=== PATIENT | male | born 1995 | race Caucasian/White ===

== ENCOUNTER 2016-07-08 16:06 | Emergency (ER) | payer BC ==
[2016-07-08 16:14] VITALS: BP 142/55
[2016-07-08] MEDS ORDERED: BSS OPTH.SOL* BTL ONE (17:10)
[2016-07-08] MEDS ORDERED: Tetracaine 0.5% OPTH.SOL 15ML* BTL ONE (17:10)
[2016-07-08] MEDS ORDERED: Fluorescein Sodium TOPICAL* 1 MG TEST ONE (17:10)
--- NOTE | 2016-07-08 17:43 | UC ---
Eye Complaint HPI - HPI Summary HPI Summary: 9AM WHILE WORKING ON HOUSE GOT SAWDUST IN RIGHT EYE. RINSED OUT EYE, BUT RIGHT EYE HAS BEEN IRRITATED AND RED EVER SINCE - History of Current Complaint Chief Complaint: UCEye Stated Complaint: FB EYE Time Seen by Provider: 07/08/16 16:22 Hx Obtained From: Patient, Family/Damage Cutter Onset/Duration: Sudden Onset, Lasting Hours, Still Present Timing: Hours Severity Initially: Mild Severity Currently: Mild Location of Injury: Conjunctiva Character: Dull Aggravating Factor(s): Nothing Alleviating Factor(s): Nothing Associated Signs And Symptoms: Positive: Drainage (Clear) - Risk Factors Penetrating Injury Risk Factor: Negative Globe Rupture Risk Factors: Negative Acute Glaucoma Risk Factors: Negative Optic Artery Occlusion Risk Factors: Negative - Allergies/Home Medications Allergies/Adverse Reactions: Allergies Allergy/AdvReac Type Severity Reaction Status Date / Time Bee Venom Allergy Severe Anaphylatic Unverified 07/08/16 16:14 Shock PMH/Surg Hx/FS Hx/Imm Hx Previously Healthy: Yes - Surgical History Surgical History: None - Family History Known Family History: Negative: Diabetes - Social History Occupation: Employed Part-time, Student Lives: With Family Alcohol Use: None Substance Use Type: None Smoking Status (MU): Never Smoked Tobacco Review of Systems Constitutional: Negative Skin: Negative Eyes: Drainage, Eye Redness ENT: Negative Respiratory: Negative Cardiovascular: Negative Gastrointestinal: Negative Genitourinary: Negative Motor: Negative Neurovascular: Negative Musculoskeletal: Negative Neurological: Negative Psychological: Negative All Other Systems Reviewed And Are Negative: Yes Physical Exam Triage Information Reviewed: Yes Appearance: Well-Appearing, No Pain Distress, Well-Nourished Vital Signs: Initial Vital Signs Temp 98.7 F 07/08/16 16:11 Pulse 57 07/08/16 16:11 Resp 16 07/08/16 16:11 BP 142/55 07/08/16 16:11 Pulse Ox 100 07/08/16 16:11 Eyes: Positive: Conjunctiva Inflamed, Discharge, Other: - FLUORESCEIN UPTAKE 3 OCLOCK TO 9 OCLOCK RIGHT CORNEA ENT Exam: Normal ENT: Positive: Normal ENT inspection, Hearing grossly normal, Pharynx normal, TMs normal, TM bulging Dental Exam: Normal Neck exam: Normal Neck: Positive: Supple, Nontender Respiratory Exam: Normal Respiratory: Positive: Chest non-tender, Lungs clear, Normal breath sounds, No respiratory distress, No accessory muscle use Cardiovascular Exam: Normal Cardiovascular: Positive: RRR, No Murmur, Pulses Normal Abdominal Exam: Normal Abdomen Description: Positive: Nontender, No Organomegaly Musculoskeletal Exam: Normal Neurological Exam: Normal Psychological Exam: Normal Skin Exam: Normal Eye Complaint Course/Dx - Differential Dx/Diagnosis Differential Diagnosis/HQI/PQRI: Conjunctivitis, Corneal Abrasion Provider Diagnoses: RIGHT CORNEAL ABRASION Discharge - Discharge Plan Condition: Stable Disposition: HOME Prescriptions: Neomycin/Polymy/Dex OPTH.SUSP* [Maxitrol Opth Susp 0.1%*] 1 drop RIGHT EYE TID # 1 bottle Patient Education Materials: Corneal Abrasion (ED) Referrals: [facility] [place] [facility] [Outside] No Primary Care Phys,NOPCP [Primary Care Provider] -
== END 2016-07-08 17:45 | disposition home or self-care (01) ==
LOC: UCEAST 16:06
DX: S05.01XA Injury of conjunctiva and corneal abrasion without foreign body, right eye, initial encounter (principal); X58.XXXA Exposure to other specified factors, initial encounter; Y93.9 Activity, unspecified; Y92.9 Unspecified place or not applicable; R03.0 Elevated blood-pressure reading, without diagnosis of hypertension
CPT/HCPCS: 99212; A9270-GY; G0463

== ENCOUNTER 2017-02-02 13:33 | Emergency (ER) | payer BC ==
[2017-02-02 13:44] VITALS: BP 131/44
[2017-02-02] MEDS ORDERED: Lidocaine 2% PF * 5 ML VIAL INJ ONE (14:02)
--- NOTE | 2017-02-02 14:32 | UC ---
Laceration HPI - HPI Summary HPI Summary: TRIPPED ON STAIRS THIS MORNING LACERATION TO LEFT LOWER LIP. NO LOC. NO NECK PAIN. NO TOOTH LOSS. TETANUS LAST YEAR. - History Of Current Complaint Chief Complaint: UCLaceration Stated Complaint: LIP LAC Time Seen by Provider: 02/02/17 13:55 Hx Obtained From: Patient Laceration Location: Face Mechanism Of Injury: Blunt Trauma Onset/Duration: Sudden Onset, Lasting Hours, Still Present - Allergies/Home Medications Allergies/Adverse Reactions: Allergies Allergy/AdvReac Type Severity Reaction Status Date / Time Bee Venom Allergy Severe Anaphylatic Unverified 02/02/17 13:44 Shock PMH/Surg Hx/FS Hx/Imm Hx Previously Healthy: Yes - Surgical History Surgical History: None - Family History Known Family History: Negative: Diabetes - Social History Occupation: Employed Part-time, Student Lives: With Family Alcohol Use: None Substance Use Type: None Smoking Status (MU): Never Smoked Tobacco Review of Systems Constitutional: Negative Skin: Other - LACERATION LEFT LOWER LIP ENT: Negative Respiratory: Negative Cardiovascular: Negative Gastrointestinal: Negative Genitourinary: Negative Motor: Negative Neurovascular: Negative Musculoskeletal: Negative Neurological: Negative Psychological: Negative Is Patient Immunocompromised?: No All Other Systems Reviewed And Are Negative: Yes Physical Exam Triage Information Reviewed: Yes Appearance: Well-Appearing, No Pain Distress, Well-Nourished Vital Signs: Initial Vital Signs Temp 98.8 F 02/02/17 13:40 Pulse 59 02/02/17 13:40 Resp 16 02/02/17 13:40 BP 131/44 02/02/17 13:40 Pulse Ox 100 02/02/17 13:40 Vital Signs Reviewed: Yes Eye Exam: Normal ENT Exam: Normal ENT: Positive: Normal ENT inspection, Hearing grossly normal, TMs normal Dental Exam: Normal Neck exam: Normal Neck: Positive: Supple, Nontender Respiratory Exam: Normal Respiratory: Positive: Chest non-tender, Lungs clear, Normal breath sounds, No respiratory distress Cardiovascular Exam: Normal Cardiovascular: Positive: RRR, No Murmur, Pulses Normal, Brisk Capillary Refill Abdominal Exam: Normal Musculoskeletal Exam: Normal Neurological Exam: Normal Psychological Exam: Normal Skin: Positive: Other - LACERATION LEFT INFERIOR LIP Laceration Repair - Laceration Repair 1 Description: Irregular Laceration Size After Repair: Length (cm) - 1, Width (mm) - 10, Depth (mm) - 5 Type Injection: Local Anesthesia Used: 2.0% Lido Irrigation With Pressure Irrigation Device: Yes Closure Material: Sutures - 3 X6-0 PROLENE Closure Method: Single Layer Suture Of: Skin, SQ Suture Type: Prolene Laceration Course/Dx - Differential Dx - Laceration/Wound Differental Diagnoses: Laceration Provider Diagnoses: LACERATION LEFT INFERIOR LIP WITH REPAIR Discharge - Discharge Plan Condition: Stable Disposition: HOME Prescriptions: Amoxicillin/Clavulanate TAB* [Augmentin TAB 875*] 875 mg PO BID #11 tab Patient Education Materials: Care For Your Stitches (ED), Laceration (ED) Referrals: [facility] [place] [facility] [Outside] No Primary Care Phys,NOPCP [Primary Care Provider] - Additional Instructions: PLEASE HAVE SUTURES REMOVED IN FIVE DAYS Images Dental: 1 - LACERATION HERE
== END 2017-02-02 14:30 | disposition home or self-care (01) ==
LOC: UCEAST 13:33
DX: S01.511A Laceration without foreign body of lip, initial encounter (principal); W22.09XA Striking against other stationary object, initial encounter; Y93.89 Activity, other specified; Y92.9 Unspecified place or not applicable; Y99.9 Unspecified external cause status; Z91.030 Bee allergy status
CPT/HCPCS: 12011; 99212; G0463

== ENCOUNTER 2017-02-06 12:43 | Emergency (ER) | payer BC ==
[2017-02-06 12:51] VITALS: BP 140/40
--- NOTE | 2017-02-06 12:53 | UC ---
HPI Wound/Suture Re-check - HPI Summary HPI Summary: her to have 3 sutures removed from bottom left lip - History Of Current Complaint Chief Complaint: UCLaceration Stated Complaint: SUTURE REMOVAL Time Seen by Provider: 02/06/17 12:53 Hx Obtained From: Patient Onset/Duration: Sudden Onset Severity: Mild Pain Intensity: 0 - Allergies/Home Medications Allergies/Adverse Reactions: Allergies Allergy/AdvReac Type Severity Reaction Status Date / Time Bee Venom Allergy Severe Anaphylatic Verified 02/06/17 12:52 Shock PMH/Surg Hx/FS Hx/Imm Hx Previously Healthy: Yes - Surgical History Surgical History: Yes Surgery Procedure, Year, and Place: Right Wrist surgery x 2. - Family History Known Family History: Negative: Diabetes - Social History Occupation: Student Lives: With Family Alcohol Use: None Substance Use Type: None Smoking Status (MU): Never Smoked Tobacco - Immunization History Most Recent Influenza Vaccination: Not UTD Most Recent Tetanus Shot: 2016 Review of Systems Constitutional: Negative Skin: Negative, Other - healing wound left lower lip Eyes: Negative ENT: Negative Respiratory: Negative Cardiovascular: Negative Gastrointestinal: Negative Genitourinary: Negative Motor: Negative Neurovascular: Negative Musculoskeletal: Negative Neurological: Negative Psychological: Negative Is Patient Immunocompromised?: No All Other Systems Reviewed And Are Negative: Yes Physical Exam Triage Information Reviewed: Yes Appearance: Well-Appearing, No Pain Distress, Well-Nourished Vital Signs: Initial Vital Signs Temp 98.5 F 02/06/17 12:48 Pulse 60 02/06/17 12:48 Resp 14 02/06/17 12:48 BP 140/40 02/06/17 12:48 Pulse Ox 100 02/06/17 12:48 Vital Signs Reviewed: Yes Eye Exam: Normal Eyes: Positive: Conjunctiva Clear ENT Exam: Normal ENT: Positive: Normal ENT inspection, Hearing grossly normal. Negative: Nasal congestion, Nasal drainage, Trismus, Muffled/hoarse voice Dental Exam: Normal Neck exam: Normal Neck: Positive: Supple, Nontender Respiratory Exam: Normal Respiratory: Positive: No respiratory distress, No accessory muscle use Cardiovascular Exam: Normal Cardiovascular: Positive: Brisk Capillary Refill Musculoskeletal Exam: Normal Musculoskeletal: Positive: Strength Intact, ROM Intact, No Edema Neurological Exam: Normal Neurological: Positive: Alert, Muscle Tone Normal Psychological Exam: Normal Skin Exam: Other Skin: Positive: Other - healing wound left side of lower lip Re-Evaluation - Re-Evaluation First Eval Change: Improved - sutures removed patient tolerated well-wound well approximated Course/Dx - Course Course Of Treatment: keep clean use moisturizer and sun screen follow with pcp prn - Differential Dx - Laceration/Wound Differential Diagnoses: Cellulitis, Healing Wound, Suture Removal Provider Diagnoses: Healing wound suture removed left side of lower lip Discharge - Discharge Plan Condition: Stable Disposition: HOME Patient Education Materials: Stitches Removal (ED), Facial Laceration (ED) Referrals: [facility] [place] [facility] [Outside] - If Needed
== END 2017-02-06 13:47 | disposition home or self-care (01) ==
LOC: UCEAST 12:43
DX: S01.501D Unspecified open wound of lip, subsequent encounter (principal); X58.XXXD Exposure to other specified factors, subsequent encounter; Z91.030 Bee allergy status